=== PATIENT | male | born 1970 | race Caucasian/White ===

== ENCOUNTER → 2020-08-27 | Outpatient (CLI) | payer BC ==
--- NOTE | 2020-09-03 11:17 | REP ---
RIGHT UPPER QUADRANT ULTRASOUND HISTORY: Pain worse with meals. FINDINGS: Real-time sonographic evaluation of right upper quadrant performed. Gallbladder demonstrates no evidence of intraluminal sludge or calculi, wall thickening, or pericholecystic fluid. There is no intrahepatic or extrahepatic biliary dilatation, common duct measuring 5 mm. The liver demonstrates no gross mass. Pancreas could not be seen due to overlying bowel gas. Evaluation of the liver is somewhat limited due to colon located between the dome of the liver and the right hemidiaphragm. Right kidney demonstrates no hydronephrosis with normal size 11.6 cm in length. There is no free fluid. IMPRESSION: Somewhat limited exam due to bowel gas as discussed above. The study appears unremarkable. No gallstones, gallbladder wall thickening, free fluid, or biliary dilatation. MTDD
== END ==
LOC: M RAD 08:27
PROVIDERS: ATTEND Family Medicine
DX: R10.11 Right upper quadrant pain (principal)

== ENCOUNTER → 2020-09-20 | Outpatient (CLI) | payer BC ==
--- NOTE | 2020-09-20 10:13 | REP ---
INDICATION: RUQ ABD PAIN. COMPARISON: Ultrasound 08/27/2020. TECHNIQUE/RADIOTRACER AND DOSE: FOLLOWING THE INTRAVENOUS ADMINISTRATION OF 6.6 [employer]CI TECHNETIUM 99 M-MEBROFENIN, MULTIPLE IMAGES OF THE RIGHT UPPER QUADRANT ARE PERFORMED FOR 60 MINUTES. NEXT 8 OZ OF ENSURE ENLIVE IS INGESTED AND FURTHER IMAGING IS PERFORMED FOR 65 MINUTES. FINDINGS: THE GALLBLADDER IS VISUALIZED AT 10 MINUTES POST INJECTION. THERE IS NO SCINTIGRAPHIC EVIDENCE OF CHOLECYSTITIS. There is no biliary to bowel transit by 1 hour. There is biliary to bowel transit after ingestion of Ensure. 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 GALLBLADDER EJECTION FRACTION IS CALCULATED TO BE 35% WHICH IS at the lower limits of NORMAL. IMPRESSION: Gallbladder ejection fraction of 35 percent is at the lower limits of normal. 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 <Electronically signed by Manuel Neal > 09/20/20 [id number]
== END ==
LOC: M RAD 07:39
PROVIDERS: ATTEND Family Medicine
DX: R94.8 Abnormal results of function studies of other organs and systems (principal); R10.11 Right upper quadrant pain
CPT/HCPCS: 78227; A9537

== ENCOUNTER → 2021-11-14 | Outpatient (CLI) | payer BC ==
[2021-11-14 14:20] LABS: HEMOGLOBIN A1c 5.6 %
[2021-11-14 14:24] LABS: DRVV SCREEN 37.4 SEC
[2021-11-14 14:38] LABS: FREE THYROXINE INDEX 2.1 % (1.4-3.8); RHEUMATOID FACTOR QUANT < 10.0 IU/ML (<15.0); T UPTAKE 28 % (33-40); THYROXINE (T4) 7.6 UG/DL (4.5-12.0); TOTAL PROTEIN 6.9 GM/DL (6.4-8.2)
[2021-11-14 14:44] LABS: FOLATE 17.1 NG/ML; VITAMIN B12 LEVEL 313 PG/ML
[2021-11-17 14:14] LABS: ALBUMIN 4.27 GM/DL (3.29-5.55); ALBUMIN % 61.9 % (55.8-66.1); ALPHA-1-GLOBULIN % 5.5 % (2.9-4.9); ALPHA-1-GLOBULINS 0.38 GM/DL (0.17-0.41); ALPHA-2-GLOBULINS 0.75 GM/DL (0.42-0.99); ALPHA-2-GLOBULINS % 10.8 % (7.1-11.8); BETA-1-GLOBULINS 0.35 GM/DL (0.28-0.60); BETA-1-GLOBULINS % 5.1 % (4.7-7.2); BETA-2-GLOBULINS 0.39 GM/DL (0.19-0.55); BETA-2-GLOBULINS % 5.7 % (3.2-6.5); GAMMA GLOBULINS 0.76 GM/DL (0.65-1.58)
[2021-11-24 16:08] LABS: ANTI DOUBLE STRAND-DNA AB <1 IU/mL (0-9); ANTINUCLEAR ANTIBODIES DIRECT Positive (Negative); RNP ANTIBODIES 0.3 AI (0.0-0.9); SJOGREN'S ANTI SS-A <0.2 AI (0.0-0.9); SJOGREN'S ANTI SS-B <0.2 AI (0.0-0.9); SMITH ANTIBODIES <0.2 AI (0.0-0.9); VITAMIN B1 LEVEL WHOLE BLOOD 82.5 nmol/L (66.5-200.0); VITAMIN B6,PYRIDOXAL PHOSPHATE 7.7 ug/L (5.3-46.7); VITAMIN E(ALPHA TOCOPHEROL) 10.6 mg/L (7.0-25.1); VITAMIN E(GAMMA TOCOPHEROL) 1.7 mg/L (0.5-5.5)
== END ==
LOC: M PLALAB 10:01
PROVIDERS: ATTEND Psychiatry & Neurology Neurology
DX: G62.9 Polyneuropathy, unspecified (principal)

== ENCOUNTER → 2022-10-06 | Outpatient (CLI) | payer BC ==
[~2022-10-06] MED LIST: CHOL4POW26 PO
== END ==
LOC: M LABSMTC 09:25
PROVIDERS: ATTEND Anesthesiology
DX: Z01.818 Encounter for other preprocedural examination (principal); Z11.52 Encounter for screening for COVID-19

== ENCOUNTER 2022-10-09 07:16 | Day surgery (SDC) | payer BC ==
[~2022-10-09] VITALS: Ht 182.9 cm; Wt 110.7 kg
[2022-10-09] MEDS ORDERED: LIDOCAINE 2% 100MG/5ML SDV (FOR ANES.) As Ordered ONE (07:19)
[2022-10-09] MEDS ORDERED: ceFAZolin SOD 2 GM in IV 1 EA IV ONE (07:35)
[2022-10-09] MEDS ORDERED: LR 1,000 ML IV SCH (07:55)
[2022-10-09] MEDS ORDERED: fentaNYL 100 MCG/2 ML INJECTION As Ordered ONE (08:11)
[2022-10-09] MEDS ORDERED: dexameTHASONE 4 MG/ML 1ML VIAL (J1100 PER 1MG) As Ordered ONE ×2 (08:11→08:51)
[2022-10-09] MEDS ORDERED: MIDAZOLAM INJ 2MG/2ML VIAL (J2250 PER 1MG) As Ordered ONE (08:11)
[2022-10-09] MEDS ORDERED: ONDANSETRON 4MG 2ML VIAL As Ordered ONE (08:11)
[2022-10-09] MEDS ORDERED: propofoL 500 MG/50 ML VIAL As Ordered ONE (08:11)
[2022-10-09] MEDS ORDERED: LIDOCAINE 2% MDV 20ML VIAL As Ordered ONE (08:51)
[2022-10-09] MEDS ORDERED: BUPIVACAINE HCL 0.5% 30ML VIAL As Ordered ONE (08:51)
[2022-10-09] MEDS ORDERED: GENTAMICIN SULF 80MG/2ML VIAL As Ordered ONE (08:52)
[2022-10-09 10:35] VITALS: BP 147/84
== END 2022-10-09 10:40 | disposition home or self-care (01) ==
LOC: M SDC 07:16
PROVIDERS: ATTEND Podiatrist
DX: M72.2 Plantar fascial fibromatosis (principal)
CPT/HCPCS: 29893; J0690; J1100; J1580; J2250; J2405; J3010

== ENCOUNTER → 2023-01-26 | Outpatient (CLI) | payer OTHER, BC ==
[2023-01-26 13:17] LABS: PLATELET COUNT, AUTOMATED 243 10^3/uL (150-450)
[2023-01-26 13:27] LABS: INR 0.93; PROTHROMBIN TIME 12.7 SECONDS (12.5-14.5)
[2023-01-26 13:28] LABS: PARTIAL THROMBOPLASTIN TIME 34.9 SECONDS (24.8-34.2)
== END ==
LOC: M PLALAB 10:27
PROVIDERS: ATTEND Physician Assistant
DX: Z01.818 Encounter for other preprocedural examination (principal)